=== PATIENT | female | born 1975 | race Hispanic/Latino ===

== ENCOUNTER 2023-11-29 06:49 | Emergency (ER) | payer OTHER ==
[~2023-11-29] VITALS: Ht 162.6 cm; Wt 63.5 kg
[2023-11-29 07:05] VITALS: PULSE 84; RESP 18; TEMP 97.2; O2SAT 100
[2023-11-29] MEDS: METHOCARBAMOL 500 MG TAB PO ONE (08:26)
[2023-11-29] MEDS ORDERED: METHOCARBAMOL750 MG PO (08:26)
[2023-11-29] MEDS: KETOROLAC TROMETHAMINE 60 MG/2 ML VIAL IM ONE (08:27)
== END 2023-11-29 08:41 | disposition home or self-care (01) ==
LOC: ER 07:12
DX: S16.1XXA Strain of muscle, fascia and tendon at neck level, initial encounter (principal); W19.XXXA Unspecified fall, initial encounter; F17.200 Nicotine dependence, unspecified, uncomplicated
CPT/HCPCS: 70450; 72125; 99284; J1885